=== PATIENT | female | born 1990 | race American Indian/Alaskan Native ===

== ENCOUNTER 2017-07-03 07:35 | Emergency (ER) | payer MEDICAID, OTHER ==
[2017-07-03 08:25] VITALS: BP 122/72
== END 2017-07-03 13:28 | disposition left against medical advice (07) ==
LOC: ED 07:35
DX: J00 Acute nasopharyngitis [common cold] (principal); Z53.21 Procedure and treatment not carried out due to patient leaving prior to being seen by health care provider

== ENCOUNTER 2018-02-24 15:10 | Inpatient (IN) | payer MEDICAID ==
[2018-02-24] MEDS ORDERED: SUBLIMAZE IV PRN (15:49)
--- NOTE | 2018-02-24 15:57 | History and Physical Report ---
History of Present Illness Date of examination: 02/24/18 Date of admission: 02/24/18 15:11 Chief complaint: Active labor. History of present illness: 28 year old female presents to L&D in active labor. Patient has been receiving care at [facility] in [place], [place]. records are available. LMP 08/05/17. EDC 03/06/18 (based on US done at 9 weeks, 4 days). EGA 38 weeks, 4 days gestation. significant for the following: previous low transverse section at 26 3/7 weeks with her last (C/S was done 10/09/15 at [facility] for severe preeclampsia); anemia (supplemented with iron); vitamin D deficiency (supplemented with vitamin D); LSIL pap. Patient states she has only been taking vitamins and no other medications. Patient denies any major health problems. Pt. states baby is moving actively. She denies leaking of fluid or vaginal bleeding. Patient states her contractions began at 06:00 today. labs are as follows: A+, antibody screen negative, rubella nonimmune, RPR nonreactive, hepatitis B surface antigen negative, HIV negative, hemoglobin electrophoresis AA, GC negative, chlamydia negative, HSV 2 negative, GBS negative, pap LSIL. Past History Past Medical History: other (history of severe preeclampsia with last , necessitating delivery) Past Surgical History: section [facility] History: abnormal PAP smear. denies: chlamydia, fibroids, gonorrhea, hepatitis B, hepatitis C, herpes, HIV, syphilis Family/Genetic History: none Social history: lives with family, full code. denies: smoking, alcohol abuse, prescription drug abuse, IV drug use - Obstetrical History Expected Date of Delivery: 03/06/18 Actual Gestation: 38 Week(s) 4 Day(s) : 3 Para: 2 Hx # Term Pregnancies: 2 Number of Pregnancies: 1 Spontaneous Abortions: 0 Induced : 0 Number of Living Children: 2 Medications and Allergies Allergies Allergy/AdvReac Type Severity Reaction Status Date / Time No Known Allergies Allergy Verified 02/24/18 15:17 Home Medications Medication Instructions Recorded Confirmed Last Taken Type Docusate Sodium [Colace] 100 mg PO BID PRN #60 capsule 10/11/15 Unknown Rx Ferrous Sulfate [Feosol 325 MG tab] 325 mg PO BID #60 tablet 10/11/15 Unknown Rx Ibuprofen [Motrin] 800 mg PO Q8HR PRN #60 tablet 10/11/15 Unknown Rx Labetalol [Normodyne TAB] 400 mg PO BID #60 tablet 10/11/15 Unknown Rx oxyCODONE /ACETAMINOPHEN [Percocet 1 tab PO Q6HR PRN #45 tablet 10/11/15 Unknown Rx 5/325] NIFEdipine XL [Procardia Xl] 90 mg PO QDAY #60 tablet 10/12/15 Unknown Rx Active Meds: Active Medications Ephedrine Sulfate (Ephedrine Sulfate) 10 mg IV Q2M PRN PRN Reason: Hypotension Fentanyl (Sublimaze) 100 mcg IV Q2H PRN PRN Reason: Labor Pain Lactated Ringer's (Lactated Ringers) 1,000 mls @ 125 mls/hr IV DIRECT DELFINA Lactated Ringer's (Lactated Ringers) 1,000 mls @ 125 mls/hr IV DIRECT DELFINA Oxytocin/Sodium Chloride (Pitocin/Ns 20 Unit/1000ml Drip) 20 units in 1,000 mls @ 125 mls/hr IV DIRECT DELFINA Lidocaine (Xylocaine 2%) 20 ml INFILTRATI ONCE ONE Stop: 02/24/18 15:50 Terbutaline Sulfate (Brethine) 0.25 mg SUB-Q ONCE PRN PRN Reason: Hyperstimulation/Hypertonicity Review of Systems All systems: negative (labor) - Vital Signs Vital signs: Vital Signs Pulse BP Pulse Ox 89 130/81 99 02/24/18 15:21 02/24/18 15:21 02/24/18 15:21 Temp Pulse Resp BP Pulse Ox 98.3 F 83 18 147/88 99 02/24/18 15:41 02/24/18 15:42 02/24/18 15:41 02/24/18 15:42 02/24/18 15:31 - Physical Exam Cardiovascular: Regular rate, Normal S1, Normal S2 Lungs: Positive: Clear to auscultation Abdomen: Positive: normal appearance, soft. Negative: distention, tenderness, guarding, rigidity Genitourinary (Female): Positive: normal external genitalia, normal perenium. Negative: perineal/vulvar lesions (no lesions seen on careful exam with bright light upon admission) Vagina: Positive: normal moisture Uterus: Positive: enlarged. Negative: tender Anus/Rectum: Positive: normal perianal skin Extremities: Positive: normal. Negative: tenderness, edema - Obstetrical FHR: category 1 Uterine Contraction Monitor Mode: External Cervical Dilatation: 6 Cervical Effacement Percentage: 95 station: -4 Uterine Contraction Pattern: Regular Uterine Contraction Intensity: Moderate Results All other labs normal. Assessment and Plan S: at 38 weeks, 4 days gestation. Active labor. GBS negative. Prior low transverse section. P: Admit. Patient desires TOLAC. Continuous EFM. Dr. Briceno notified of patient's desire for TOLAC and states it is OK for pt. to attempt vaginal . Discussed with patient risks and benefits of TOLAC; pt. consented to TOLAC. Admission labs done. Anticipate vaginal .
[2018-02-24] MEDS ORDERED: BRETHINE SUB-Q PRN (16:00)
[2018-02-24] MEDS ORDERED: XYLOCAINE 2% INFILTRATI ONE (16:00)
[2018-02-24] MEDS ORDERED: LACTATED RINGERS 1,000 ML IV SCH ×2 (16:00)
[2018-02-24] MEDS ORDERED: PITOCin/NS 20 UNIT/1000ML DRIP 20 UNITS/1,000 ML BAG IV SCH (16:00)
[2018-02-24 16:19] LABS: Alanine Aminotransferase 14 units/L (7-56); Albumin 3.9 g/dL (3.9-5); BUN/Creatinine Ratio 10; Blood Urea Nitrogen 5 mg/dL (7-17); Calcium 9.8 mg/dL (8.4-10.2); Hemolysis Index 30
[2018-02-24 16:25] LABS: Hemoglobin 12.3 gm/dl (10.1-14.3)
[2018-02-24 16:26] LABS: Mean Corpuscular HGB Conc 30 % (30-34); Mean Corpuscular Hemoglobin 24 pg (28-32); Mean Corpuscular Volume 80 fl (79-97)
[2018-02-24 16:27] LABS: Basophils % (Auto) 0.4 % (0.0-1.8); Eosinophils % (Auto) 0.4 % (0.0-4.3); Lymphocytes % (Auto) 12.7 % (13.4-35.0); Monocytes % (Auto) 6.2 % (0.0-7.3)
[2018-02-24 16:28] LABS: Lymphocytes # (Auto) 1.4 K/mm3 (1.2-5.4); Monocytes # (Auto) 0.7 K/mm3 (0.0-0.8)
[2018-02-24 16:59] LABS: Platelet Count 84 K/mm3 (140-440)
[2018-02-24] MEDS ORDERED: AFLURIA QUAD 2018-2019 SYRINGE IM ONE (17:00)
[2018-02-24] MEDS ORDERED: CYTOTEC ONE (17:58)
[2018-02-24] MEDS ORDERED: PHENERGAN PO PRN (18:09)
[2018-02-24] MEDS ORDERED: DULCOLAX PR PRN (18:09)
[2018-02-24] MEDS ORDERED: TUCKS PAD TP PRN (18:09)
[2018-02-24] MEDS ORDERED: BENADRYL PO PRN (18:09)
[2018-02-24] MEDS ORDERED: PHENERGAN PR PRN (18:09)
[2018-02-24] MEDS ORDERED: LANSINOH TP PRN (18:09)
[2018-02-24] MEDS ORDERED: MILK OF MAGNESIA PO PRN (18:09)
--- NOTE | 2018-02-24 18:16 | Procedure Note ---
OB Delivery Note - Delivery Date of Delivery: 02/24/18 Surgeon: CHANG HAUSER Estimated blood loss: other (250 cc) - Vaginal Delivery presentation: vertex Delivery position: OA Intrapartum events: shoulder dystocia, other(please specify) (tight nuchal cord) Delivery induction: none Delivery augmentation: rupture of membranes Delivery monitor: external FHT, external uterine Route of delivery: Delivery placenta: spontaneous Delivery cord: nuchal cord, 3 umbilical vessels Episiotomy: none Delivery laceration: none Anesthesia: none Delivery comments: Spontaneous vaginal delivery of liveborn female infant weighing 7 lbs. over intact perineum with apgars of 7/9. No anesthesia. . Dr. Briceno called to delivery due to prolonged heart rate deceleration to 60s. Patient pushed well and quickly delivered the baby spontaneously over intact perineum. Very tight nuchal cord which had to be double clamped on perineum; cord was cut by Dr. Briceno. Snug shoulders/mild shoulder dystocia resolved with Elyssa maneuver and suprapubic pressure. Baby taken to radiant warmer after where PPV was provided, followed by vigorous cry. Baby moving all extremities well. Spontaneous delivery of intact placenta and membranes; Pitocin to IV fluids after delivery of placenta. EBL 250 cc. Fundus firm and midline. No lacerations noted; vaginal sweep negative. Sponge count correct.
[2018-02-24] MEDS ORDERED: CYTOTEC PR ONE (18:17)
[2018-02-24] MEDS: MOTRIN PO SCH (18:38)
[2018-02-24] MEDS ORDERED: SODIUM CHLORIDE FLUSH SYRINGE 10 ML IV NR (19:00)
[2018-02-25] MEDS: MOTRIN PO SCH ×3 (00:26→19:00)
[2018-02-25] MEDS: NORCO 5/325 PO PRN (05:42)
[2018-02-25] MEDS ORDERED: BOOSTRIX IM ONE (06:00)
[2018-02-25 06:16] LABS: Hemoglobin 10.8 gm/dl (10.1-14.3)
--- NOTE | 2018-02-25 14:21 | Progress Note ---
Assessment and Plan - Patient Problems (1) , delivered, current hospitalization Current Visit: Yes Status: Acute Plan to address problem: PPD 1 - stable Continue routine PP orders Discharge to home 02/26/18 Follow up at [facility] in 6 weeks for exam Subjective - Subjective Date of service: 02/25/18 Principal diagnosis: PPD #1; s/p Patient reports: appetite normal, voiding normally, pain well controlled, ambulating normally, no dizzy ambulation Nelson: doing well Objective - Vital Signs Latest vital signs: Vital Signs Temp Pulse Resp BP BP Pulse Ox 02/25/18 13:00 98.9 F 77 20 121/69 02/25/18 08:25 98.4 F 71 18 114/62 02/25/18 04:00 98.6 F 81 18 132/77 02/25/18 00:00 98.7 F 71 16 121/76 02/24/18 19:40 98.7 F 81 16 138/81 02/24/18 18:55 85 140/62 02/24/18 18:41 90 142/83 02/24/18 18:38 18 02/24/18 18:31 87 100 02/24/18 18:26 93 H 142/77 02/24/18 18:25 95 H 98 02/24/18 18:22 84 152/89 02/24/18 18:21 96 H 88 02/24/18 18:16 92 H 89 02/24/18 18:10 94 H 145/83 97 02/24/18 18:08 94 H 85 02/24/18 18:06 100 H 100 02/24/18 18:00 97.7 F 101 H 18 97 02/24/18 17:55 106 H 127/73 02/24/18 17:47 144 H 98 02/24/18 17:46 125 H 0 L 02/24/18 17:23 107 H 100 02/24/18 17:18 124 H 99 02/24/18 17:15 98 H 94 02/24/18 17:13 126 H 98 02/24/18 17:08 100 H 99 02/24/18 17:03 92 H 100 02/24/18 16:38 96 H 129/80 02/24/18 15:42 83 147/88 02/24/18 15:41 98.3 F 18 02/24/18 15:31 103 H 99 02/24/18 15:26 83 99 02/24/18 15:21 89 130/81 99 Intake and Output 02/24/18 02/25/18 02/25/18 23:59 07:59 15:59 Intake Total 780 Output Total 1200 1500 Balance -1200 -720 Intake: Oral 780 Output: Urine 1200 1500 Void 1200 1500 Other: Total, Intake Amount 420 Total, Output Amount 400 900 # Voids Void 1 1 3 Estimated Blood Loss 250 - Exam Abdomen: Present: normal appearance, soft Vulva: both: normal Uterus: Present: normal, firm, fundal height below umbilicus Extremities: Present: normal - Labs Labs: Abnormal lab results 02/24/18 02/24/18 02/24/18 Range/Units 15:45 15:45 15:45 RBC 5.10 H (3.65-5.03) M/mm3 MCH 24 L (28-32) pg Plt Count 84 L (140-440) K/mm3 Lymph % (Auto) 12.7 L (13.4-35.0) % Seg Neutrophils % 80.3 H (40.0-70.0) % Seg Neutrophils # 8.8 H (1.8-7.7) K/mm3 BUN 5 L (7-17) mg/dL Creatinine 0.5 L (0.7-1.2) mg/dL Alkaline Phosphatase 149 H (35-129) units/L Lactate Dehydrogenase 204 H (91-180) units/L
--- NOTE | 2018-02-25 14:24 | Discharge Summary ---
Providers - Providers Date of Admission: 02/24/18 15:11 Date of discharge: 02/26/18 Attending physician: KOLTON BEDOYA MD Primary care physician: KOLTON BEDOYA MD Hospitalization Reason for admission: active labor, IUP at term Delivery: Episiotomy: none Laceration: none Other procedures: none complications: none Discharge diagnosis: IUP at term delivered, baby: female Hospital course: Uncomplicated Condition at discharge: Stable Disposition: DC-01 TO HOME OR SELFCARE - Discharge Diagnoses (1) , delivered, current hospitalization Status: Acute Plan - Provider Discharge Summary Activity: routine, no sex for 6 weeks, no heavy lifting 4 weeks, no strenuous exercise Diet: routine Instructions: routine Additional instructions: [] Smoking cessation referral if applicable(refer to patient education folder for contact #) [] Refer to [facility]'s [facility] Booklet Call your doctor immediately for: * Fever > 100.5 * Heavy vaginal bleeding ( >1 pad per hour) * Severe persistent headache * Shortness of breath * Reddened, hot, painful area to leg or breast * Drainage or odor from incision. * Keep incision clean and dry at all times and follow doctor's instructions regarding bathing/showering - Follow up plan Follow up: KOLTON BEDOYA MD [Primary Care Provider] - 6 Weeks (Follow up at [facility] in 6 weeks for exam)
[2018-02-26] MEDS: MOTRIN PO SCH (01:00)
[2018-02-26] MEDS: NORCO 5/325 PO PRN (06:06)
[2018-02-26 08:11] VITALS: BP 110/65
== END 2018-02-26 14:00 | disposition home or self-care (01) | DRG 775 ==
LOC: TRG 15:10 → LD 15:11 → TRG 15:33 → OB 19:59
PROVIDERS: ADMIT Obstetrics & Gynecology; ATTEND Obstetrics & Gynecology
PROC: 10E0XZZ Delivery of Products of Conception, External Approach (ICD-10-PCS; principal; 2018-02-24)
PROC: 3E0234Z Introduction of Serum, Toxoid and Vaccine into Muscle, Percutaneous Approach (ICD-10-PCS; principal; 2018-02-24)
DX: O69.81X0 Labor and delivery complicated by cord around neck, without compression, not applicable or unspecified (principal); Z3A.38 38 weeks gestation of pregnancy; Z37.0 Single live birth; O66.0 Obstructed labor due to shoulder dystocia; Z23 Encounter for immunization
CPT/HCPCS: 36415; 80053; 83615; 84550; 85014; 85018; 85025; 86592; 86803; 86850; 86900; 86901; 87806; 88307; 90471; 90686; 90715; J2590; J3010; J7120